=== PATIENT | female | born 1985 | race Two or more races ===

== ENCOUNTER 2024-05-25 02:43 | Emergency (ER) | payer OTHER ==
[~2024-05-25] VITALS: Ht 172.7 cm; Wt 95.9 kg
[2024-05-25 03:15] VITALS: BP 115/77; PULSE 104; RESP 24; TEMP 97.6; O2SAT 96
[2024-05-25] MEDS: KETOROLAC TROMETH 60MG/2ML VIAL IM ONE (04:34)
[2024-05-25] MEDS ORDERED: IBUP-1456 PO (04:44)
[2024-05-25] MEDS ORDERED: METH-1181 PO (04:44)
== END 2024-05-25 04:48 | disposition home or self-care (01) ==
LOC: ER 02:43
DX: S39.012A Strain of muscle, fascia and tendon of lower back, initial encounter (principal); S13.4XXA Sprain of ligaments of cervical spine, initial encounter; Z79.1 Long term (current) use of non-steroidal anti-inflammatories (NSAID); V43.52XA Car driver injured in collision with other type car in traffic accident, initial encounter; Y93.89 Activity, other specified; Y92.89 Other specified places as the place of occurrence of the external cause; Y99.8 Other external cause status
CPT/HCPCS: 96372; 99283; J1885